=== PATIENT | female | born 1970 | race Caucasian/White ===

== ENCOUNTER 2017-06-08 12:31 | Emergency (ER) | payer MEDICAID | END 2017-06-08 14:50 | disposition home or self-care (01) | LOC: D.ER 12:31 | DX: M25.562 Pain in left knee (principal); I10 Essential (primary) hypertension; F17.200 Nicotine dependence, unspecified, uncomplicated ==

== ENCOUNTER → 2017-06-14 13:28 | Outpatient (CLI) | payer MEDICAID | END | disposition home or self-care (01) | LOC: D.MRI 13:28 | DX: M25.562 Pain in left knee (principal) ==